=== PATIENT | female | born 2005 | race Caucasian/White ===

== ENCOUNTER 2024-08-31 09:51 | Outpatient (REF) | payer OTHER, SELFPAY ==
--- NOTE | ~2024-08-31 | US_ITS ---
EXAMINATION: US ABDOMEN LIMITED HISTORY: RUQ PAIN, R/O CHOLECYSTITIS TECHNIQUE: Real-time grayscale ultrasound imaging of the right upper quadrant was performed and images were reviewed. COMPARISON: There are no prior studies available for comparison. FINDINGS: Liver: The liver is normal in size. The liver demonstrates normal homogeneous echotexture. No focal mass or intrahepatic biliary ductal dilatation is identified. There is normal hepatopedal flow in the portal vein. Gallbladder and biliary tree: The gallbladder is unremarkable, without evidence of calculi, wall thickening, or pericholecystic fluid. There is no sonographic Bullock sign. The common bile duct is normal in caliber measuring 3 mm. Right Kidney: The right kidney measures 10.2 cm in length. The upper pole is heterogeneously echogenic and demonstrates an associated 1.4 cm cyst. There is also mild cortical thinning in this region. Findings are suspicious for acute pyelonephritis. Pancreas: The pancreatic head, neck, and body are unremarkable. The pancreatic tail is obscured by bowel gas. Abdominal aorta and inferior vena cava: The visualized portions of the abdominal aorta and inferior vena cava are normal in caliber. There is trace fluid in Morison's pouch. US/US abdomen limited IMPRESSION: 1. Findings suspicious for acute right pyelonephritis. Correlation with urinalysis and urine culture is recommended. 2. No evidence of cholelithiasis or acute cholecystitis. Electronically signed by: Jatin Ashley MD 08/31/2024 12:43 PM EDT
== END 2024-08-31 09:52 | disposition home or self-care (01) ==
LOC: HO.UMASIMG 09:51
PROVIDERS: Visit Provider Emergency Medicine
DX: R10.9 Unspecified abdominal pain (principal)
CPT/HCPCS: 76705

== ENCOUNTER → 2024-08-31 11:45 | Outpatient (BNV) | payer OTHER, SELFPAY | PROVIDERS: Visit Provider Radiology Diagnostic Radiology | DX: R10.11 Right upper quadrant pain (principal) | CPT/HCPCS: 76705 ==